=== PATIENT | male | born 1980 | race American Indian/Alaskan Native ===

== ENCOUNTER 2018-04-27 15:15 | Emergency (ER) | payer SELFPAY ==
[2018-04-27 15:32] VITALS: BP 145/91
[2018-04-27 16:04] LABS: Bilirubin,Urine NEG (Negative); Blood,Urine NEG (Negative); Color,Urine Straw (Yellow); Protein,Urine <15 mg/dL mg/dL (Negative); Urobilinogen,Urine < 2.0 mg/dL (<2.0); WBC,Urine < 1.0 /HPF (0.0-6.0)
[2018-04-27] MEDS ORDERED: ZOFRAN IV ONE (17:11)
[2018-04-27] MEDS ORDERED: PEPCID IV ONE (17:11)
--- NOTE | 2018-04-27 17:14 | Emergency Department Report ---
ED Abdominal Pain HPI - General Chief Complaint: Abdominal Pain Stated Complaint: NAUSEA/VOMIT/CHEST PAIN Time Seen by Provider: 04/27/18 17:09 Source: patient Mode of arrival: Wheelchair Limitations: No Limitations - History of Present Illness Initial Comments: This is a 38-year-old male with a history of hypertension controlled with medication present see complaining of nausea and vomiting with abdominal pain that started worsened today. Patient states he has had intermittent abdominal pain for a wall and now worsening today. Patient states that he localized to generalized abdominal region. Patient also complains of left sided pelvic pain feels like there is an not today. He had 1 episodes of vomiting yesterday. He denies fevers/chills/dysuria/penile discharge/hematuria or scrotal swelling or pain. MD Complaint: abdominal pain -: Gradual Location: diffuse, periumbilical - Related Data Previous Rx's Medication Instructions Recorded Last Taken Type Omeprazole 20 mg PO DAILY #30 capsule. 04/20/18 Unknown Rx traMADol [Ultram 50 MG tab] 50 mg PO Q6HR PRN #15 tablet 04/20/18 Unknown Rx Dicyclomine [Bentyl] 10 mg PO BID #30 capsule 04/27/18 Unknown Rx Ondansetron (Nf) [Zofran TAB] 8 mg PO Q8HR #24 tablet 04/27/18 Unknown Rx amLODIPine [Norvasc] 5 mg PO DAILY #40 tab 04/27/18 Unknown Rx Allergies Allergy/AdvReac Type Severity Reaction Status Date / Time No Known Allergies Allergy Verified 04/20/18 13:52 ED Review of Systems ROS: Stated complaint: NAUSEA/VOMIT/CHEST PAIN Other details as noted in HPI Comment: All other systems reviewed and negative ED Past Medical Hx - Past Medical History Previous Medical History?: Yes Hx Hypertension: Yes - Surgical History Past Surgical History?: Yes - Social History Smoking Status: Former Smoker Substance Use Type: None - Medications Home Medications: Home Medications Medication Instructions Recorded Confirmed Last Taken Type Omeprazole 20 mg PO DAILY #30 capsule. 04/20/18 Unknown Rx traMADol [Ultram 50 MG tab] 50 mg PO Q6HR PRN #15 tablet 04/20/18 Unknown Rx Dicyclomine [Bentyl] 10 mg PO BID #30 capsule 04/27/18 Unknown Rx Ondansetron (Nf) [Zofran TAB] 8 mg PO Q8HR #24 tablet 04/27/18 Unknown Rx amLODIPine [Norvasc] 5 mg PO DAILY #40 tab 04/27/18 Unknown Rx ED Physical Exam - General Limitations: No Limitations General appearance: alert, in no apparent distress - Head Head exam: Present: atraumatic, normocephalic - Eye Eye exam: Present: normal appearance - ENT ENT exam: Present: mucous membranes moist - Neck Neck exam: Present: normal inspection - Respiratory Respiratory exam: Present: normal lung sounds bilaterally. Absent: respiratory distress - Cardiovascular Cardiovascular Exam: Present: regular rate, normal rhythm. Absent: systolic mur mur, diastolic murmur, rubs, gallop - GI/Abdominal GI/Abdominal exam: Present: soft, normal bowel sounds - Rectal Rectal exam: Present: deferred - Extremities Exam Extremities exam: Present: normal inspection - Back Exam Back exam: Present: normal inspection - Neurological Exam Neurological exam: Present: alert, oriented X3 - Psychiatric Psychiatric exam: Present: normal affect, normal mood - Skin Skin exam: Present: warm, dry, intact, normal color. Absent: rash ED Course Vital Signs 04/27/18 04/27/18 15:28 17:08 Temperature 98.4 F Pulse Rate 66 Respiratory 18 16 Rate Blood Pressure 145/91 O2 Sat by Pulse 99 Oximetry ED Medical Decision Making - Lab Data Result diagrams: 04/27/18 17:24 04/27/18 17:24 - Radiology Data Radiology results: report reviewed, image reviewed FINDINGS: Visualized lower thorax: No significant abnormality. Liver: Normal size and attenuation. Spleen: Normal size and attenuation. Gallbladder and biliary system: Normal. Pancreas: Normal. Adrenals: Normal. Kidneys: Normal. No hydronephrosis. GI tract: No dilated loops of large or small bowel. Appendix is not visualized.. Lymph nodes and mesentery: Normal. Vasculature: Normal. Bladder: Normal. Reproductive organs: Normal. Peritoneum: No free fluid. Musculoskeletal structures: Degenerative change at L5-S1. Other: None. IMPRESSION: No mass or obstruction. Appendix is not visualized. Transcribed By: JO Dictated By: OLEGARIO IRVIN MD Electronically Authenticated By: OLEGARIO IRVIN MD Signed Date/Time: 04/27/182028 - Medical Decision Making This is a 38-year-old male male who presents with abdominal pain CBC, BMP, urinalysis completed. No abnormal findings CT scan of the abdomen and pelvis ordered. She scan shows no abnormalities Vital signs normal patient is in acute distress. Discussed findings with the patient. He had no vomiting episode in the ED. [facility] Work[facility] referral is given to the patient. Critical care attestation.: If time is entered above; I have spent that time in minutes in the direct care of this critically ill patient, excluding procedure time. ED Disposition Clinical Impression: Gastritis, GERD (gastroesophageal reflux disease), Gastroenteritis Disposition: TO HOME OR SELFCARE Is pt being admited?: No Does the pt Need Aspirin: No Condition: Stable Instructions: Gastritis (ED), Gastroesophageal Reflux in Children (ED), Acute Nausea and Vomiting (ED) Additional Instructions: Make sure to follow up with the primary care physician as discussed. Take all your medications as you've been prescribed. If you have any worsening symptoms or develop new symptoms please return to ED immediately. Prescriptions: amLODIPine [Norvasc] 5 mg PO DAILY #40 tab Dicyclomine [Bentyl] 10 mg PO BID #30 capsule Ondansetron (Nf) [Zofran TAB] 8 mg PO Q8HR #24 tablet Referrals: RONALD PATE DO [Primary Care Provider] - 3-5 Days [facility] [Provider Group] - 3-5 Days [facility] [Provider Group] - 3-5 Days Forms: Accompanied Note, Work/School Release Form(ED) Time of Disposition: 20:51
[2018-04-27 17:32] LABS: Hematocrit 39.5 % (35.5-45.6); Hemoglobin 13.4 gm/dl (11.8-15.2); Mean Corpuscular HGB Conc 34 % (32-34); Mean Corpuscular Volume 88 fl (84-94); Platelet Count 250 K/mm3 (140-440); Red Blood Count 4.47 M/mm3 (3.65-5.03); Red Cell Distribution Width 12.6 % (13.2-15.2)
[2018-04-27 18:03] LABS: BUN/Creatinine Ratio 23; Blood Urea Nitrogen 23 mg/dL (9-20); Calcium 8.7 mg/dL (8.4-10.2); Hemolysis Index 1
--- NOTE | 2018-04-27 20:29 | Cat Scan Report ---
FINAL REPORT PROCEDURE: CT ABDOMEN PELVIS W CON TECHNIQUE: Computerized axial tomography of the abdomen and pelvis was performed after the IV inject ion of iodinated nonionic contrast. HISTORY: abd emerson COMPARISON: February 04, 2015 FINDINGS: Visualized lower thorax: No significant abnormality. Liver: Normal size and attenuation. Spleen: Normal size and attenuation. Gallbladder and biliary system: Normal. Pancreas: Normal. Adrenals: Normal. Kidneys: Normal. No hydronephrosis. GI tract: No dilated loops of large or small bowel. Appendix is not visualized.. Lymph nodes and mesentery: Normal. Vasculature: Normal. Bladder: Normal. Reproductive organs: Normal. Peritoneum: No free fluid. Musculoskeletal structures: Degenerative change at L5-S1. Other: None. IMPRESSION: No mass or obstruction. Appendix is not visualized.
== END 2018-04-27 21:30 | disposition home or self-care (01) ==
LOC: ED 15:15
DX: K52.9 Noninfective gastroenteritis and colitis, unspecified (principal); K29.70 Gastritis, unspecified, without bleeding; K21.9 Gastro-esophageal reflux disease without esophagitis; I10 Essential (primary) hypertension; Z87.891 Personal history of nicotine dependence
CPT/HCPCS: 36415; 74177; 80048; 81001; 85027; 96374; 96375; 99284; J2405; Q9967

== ENCOUNTER 2018-05-16 18:11 | Emergency (ER) | payer MEDICAID, OTHER ==
--- NOTE | 2018-05-16 21:00 | Emergency Department Report ---
Blank Doc - Documentation Documentation: 38 year male with pmh of HTN presents c/o chest pain which he feels is associ ated with HTN. no fever or chills. no sweats. wants his BP medications adjusted
--- NOTE | 2018-05-16 21:23 | XRay Report ---
FINAL REPORT EXAM: XR CHEST ROUTINE 2V HISTORY: chest pain and htn TECHNIQUE: Two view chest PA and lateral PRIORS: None. FINDINGS: Cardiac and mediastinal contours are unremarkable. No focal pulmonary infiltrate is identified. No pleural fluid collection seen. Pulmonary vasculature is unremarkable. IMPRESSION: Negative two-view chest
--- NOTE | 2018-05-17 02:07 | Emergency Department Report ---
ED General Adult HPI - General Chief complaint: Chest Pain Stated complaint: CHEST PAIN/HBP Time Seen by Provider: 05/16/18 20:24 Source: patient Mode of arrival: Ambulatory Limitations: No Limitations - History of Present Illness Initial comments: 38-year-old -Portuguese male presents to the emergency room for sternal chest pain that begun yesterday morning that was constant pressure and radiated to the back. Patient at that time was having right leg tingling and shortness of breath and nausea. Patient reports he was seen at the urgent care and was sent to the emergency room for further evaluation. Currently patient is now being seen there has chest pain at this moment denies any shortness of breath at this time. Patient reports that he has a history of hypertension and just getting back on his meds. Patient reports he been off of his blood pressure medicine for a year prior to April 27, 2018. -: days(s) (1) Location: chest Radiation: back Severity scale (0 -10): 7 Quality: sharp Consistency: intermittent Improves with: none Worsens with: none Associated Symptoms: diaphoresis, nausea/vomiting Treatments Prior to Arrival: none - Related Data Previous Rx's Medication Instructions Recorded Last Taken Type Omeprazole 20 mg PO DAILY #30 capsule. 04/20/18 Unknown Rx traMADol [Ultram 50 MG tab] 50 mg PO Q6HR PRN #15 tablet 04/20/18 Unknown Rx Dicyclomine [Bentyl] 10 mg PO BID #30 capsule 04/27/18 Unknown Rx Ondansetron (Nf) [Zofran TAB] 8 mg PO Q8HR #24 tablet 04/27/18 Unknown Rx amLODIPine [Norvasc] 5 mg PO DAILY #40 tab 04/27/18 Unknown Rx Allergies Allergy/AdvReac Type Severity Reaction Status Date / Time No Known Allergies Allergy Verified 05/16/18 20:19 ED Review of Systems ROS: Stated complaint: CHEST PAIN/HBP Other details as noted in HPI Comment: All other systems reviewed and negative Constitutional: denies: chills, fever Eyes: denies: eye pain, eye discharge, vision change ENT: denies: ear pain, throat pain Respiratory: shortness of breath Cardiovascular: chest pain (has resolved) Endocrine: no symptoms reported Gastrointestinal: nausea (has resolved) Genitourinary: denies: urgency, dysuria Musculoskeletal: back pain (has resolved) Neurological: other (tingling to the right leg.) ED Past Medical Hx - Past Medical History Hx Hypertension: Yes - Social History Smoking Status: Never Smoker - Medications Home Medications: Home Medications Medication Instructions Recorded Confirmed Last Taken Type Omeprazole 20 mg PO DAILY #30 capsule. 04/20/18 Unknown Rx traMADol [Ultram 50 MG tab] 50 mg PO Q6HR PRN #15 tablet 04/20/18 Unknown Rx Dicyclomine [Bentyl] 10 mg PO BID #30 capsule 04/27/18 Unknown Rx Ondansetron (Nf) [Zofran TAB] 8 mg PO Q8HR #24 tablet 04/27/18 Unknown Rx amLODIPine [Norvasc] 5 mg PO DAILY #40 tab 04/27/18 Unknown Rx ED Physical Exam - General Limitations: No Limitations General appearance: alert, in no apparent distress - Head Head exam: Present: atraumatic, normocephalic - Eye Eye exam: Present: normal appearance - ENT ENT exam: Present: mucous membranes moist - Neck Neck exam: Present: normal inspection, full ROM - Respiratory Respiratory exam: Present: normal lung sounds bilaterally, chest wall tenderness (mid sternal). Absent: respiratory distress - Cardiovascular Cardiovascular Exam: Present: regular rate, normal rhythm. Absent: systolic murmur, diastolic murmur, rubs, gallop - GI/Abdominal GI/Abdominal exam: Present: soft, normal bowel sounds - Rectal Rectal exam: Present: deferred - Extremities Exam Extremities exam: Present: normal inspection. Absent: pedal edema - Back Exam Back exam: Present: normal inspection, full ROM, muscle spasm - Neurological Exam Neurological exam: Present: alert, oriented X3 - Psychiatric Psychiatric exam: Present: normal affect, normal mood - Skin Skin exam: Present: warm, dry, intact, normal color. Absent: rash ED Course Vital Signs 05/16/18 20:19 Temperature 97.9 F Pulse Rate 73 Respiratory 16 Rate Blood Pressure 139/100 O2 Sat by Pulse 99 Oximetry ED Medical Decision Making - Lab Data Result diagrams: 05/17/18 02:25 05/17/18 02:25 Laboratory Tests 05/17/18 05/17/18 05/17/18 02:25 02:25 02:25 WBC 6.3 RBC 4.97 Hgb 15.0 Hct 43.8 MCV 88 MCH 30 MCHC 34 RDW 12.5 L Plt Count 241 Lymph % (Auto) 33.5 [place]ois % (Auto) 7.2 Eos % (Auto) 3.4 Baso % (Auto) 1.0 Lymph # 2.1 [place]ois # 0.5 Eos # 0.2 Baso # 0.1 Seg Neutrophils % 54.9 Seg Neutrophils # 3.5 PT 13.1 INR 0.94 Sodium 139 Potassium 3.9 Chloride 99.9 Carbon Dioxide 30 Anion Gap 13 BUN 14 Creatinine 1.2 Estimated GFR > 60 BUN/Creatinine Ratio 12 Glucose 99 Calcium 9.3 Total Bilirubin 2.60 H AST 27 ALT 20 Alkaline Phosphatase 52 Troponin T < 0.010 Total Protein 6.6 Albumin 4.4 Albumin/Globulin Ratio 2.0 - Radiology Data Radiology results: report reviewed Chest x-ray impression negative two-view x-ray. - Medical Decision Making Patient has been evaluated by this provider in fast track. EKG has been ordered troponins CBC CMP PT PTT. Critical care attestation.: If time is entered above; I have spent that time in minutes in the direct care of this critically ill patient, excluding procedure time. ED Disposition Clinical Impression: Chest pain in adult, Chest wall tenderness Disposition: DC-01 TO HOME OR SELFCARE Is pt being admited?: No Does the pt Need Aspirin: No Condition: Stable Instructions: Chest Pain (ED) Additional Instructions: Chest x-ray and lab work were negative. You can take Tylenol or Motrin for pain. Follow-up with her primary care provider if symptoms persist or gets worse. Referrals: YOUNG GUERRA [Primary Care Provider] - 3-5 Days Forms: Work/School Release Form(ED)
[2018-05-17 02:34] LABS: Basophils # (Auto) 0.1 K/mm3 (0.0-0.1); Eosinophils # (Auto) 0.2 K/mm3 (0.0-0.4); Eosinophils % (Auto) 3.4 % (0.0-4.3); Hematocrit 43.8 % (35.5-45.6); Lymphocytes # (Auto) 2.1 K/mm3 (1.2-5.4); Lymphocytes % (Auto) 33.5 % (13.4-35.0); Mean Corpuscular HGB Conc 34 % (32-34); Mean Corpuscular Volume 88 fl (84-94); Monocytes # (Auto) 0.5 K/mm3 (0.0-0.8); Monocytes % (Auto) 7.2 % (0.0-7.3); Platelet Count 241 K/mm3 (140-440); Red Blood Count 4.97 M/mm3 (3.65-5.03); Red Cell Distribution Width 12.5 % (13.2-15.2)
[2018-05-17 02:45] LABS: INR 0.94 (0.87-1.13)
[2018-05-17 02:52] LABS: Alanine Aminotransferase 20 units/L (7-56); Albumin 4.4 g/dL (3.9-5); BUN/Creatinine Ratio 12; Blood Urea Nitrogen 14 mg/dL (9-20); Calcium 9.3 mg/dL (8.4-10.2); Hemolysis Index 5
[2018-05-17 03:57] VITALS: BP 129/86
== END 2018-05-17 03:58 | disposition home or self-care (01) ==
LOC: ED 18:11
DX: R07.89 Other chest pain (principal); R11.2 Nausea with vomiting, unspecified; I10 Essential (primary) hypertension
CPT/HCPCS: 36415; 71046; 80053; 84484; 85025; 85610; 93005; 93010; 99283